=== PATIENT | female | born 1930 | race Caucasian/White ===

== ENCOUNTER 2017-02-16 16:30 | Inpatient (IN) | payer MEDICARE ==
[~2017-02-16] VITALS: Ht 154.9 cm; Wt 65.6 kg
[~2017-02-16 16:30] MED LIST: ALPR-475 PO; CHOL100015 PO; CYAN10005 PO; MULT-6 PO; NEBI5TAB2 PO
[2017-02-16] MEDS ORDERED: SODIUM CHLORIDE FLUSH 10ML SYR IVF ONE (17:30)
[2017-02-16 17:58] LABS: ASPARTATE AMINO TRANSFERASE 12 U/L (15-37); BLOOD UREA NITROGEN 19 mg/dL (7-18)
[2017-02-16] MEDS ORDERED: ACETAMINOPHEN 500 MG TABLET ONE (18:06)
[2017-02-16] MEDS ORDERED: METOCLOPRAMIDE 5 MG/ML, 2ML ONE (18:07)
[2017-02-16 18:15] LABS: HEMATOCRIT 26.4 % (34.6-47.8); HEMOGLOBIN 8.3 g/dL (11.7-16.4); WHITE BLOOD COUNT 15.3 x10^3/uL (3.4-10)
[2017-02-16 18:23] LABS: DIFF TOTAL CELLS COUNTED 100 CELL DIFF
[2017-02-16 18:26] LABS: ANISOCYTOSIS 2+; VERIFY COUNTS? YES
[2017-02-16 18:27] LABS: HYPOCHROMIA 2+; MICROCYTOSIS 2+; OVALOCYTES 1+; SCHISTOCYTES 1+
[2017-02-16 18:29] LABS: GIANT PLATELETS 1+; LARGE PLATELETS 2+
[2017-02-16] MEDS ORDERED: ACETAMINOPHEN 325 MG TABLET PO ONE (18:30)
[2017-02-16] MEDS ORDERED: METOCLOPRAMIDE 5 MG/ML, 2ML IVPush ONE (18:30)
[2017-02-16 19:18] LABS: TOTAL IRON BINDING CAPACITY 229 mcg/dL (250-450)
[2017-02-16] MEDS ORDERED: MAGNESIUM SULFATE PMX 2GM/50ML 50 ML IV ONE (20:00)
[2017-02-16] MEDS ORDERED: POLYETHYLENE GLYCOL 17 GM PACKET PO PRN (20:00)
[2017-02-16] MEDS ORDERED: ONDANSETRON 2MG/ML, 2ML IVPush PRN (20:00)
[2017-02-16] MEDS ORDERED: ACETAMINOPHEN 325 MG TABLET PO PRN (20:00)
[2017-02-16] MEDS ORDERED: BISACODYL 10 MG SUPP PR PRN (20:00)
[2017-02-16 20:30] VITALS: BP 104/57
[2017-02-16] MEDS ORDERED: ERGOCALCIFEROL 50,000 UNIT CAPSULE PO SCH (21:00)
[2017-02-16] MEDS: SODIUM CHLORIDE 0.9% 1,000 ML IV SCH (23:12)
[2017-02-17] VITALS (12 sets, daily range): BP systolic 93–127; BP diastolic 45–67
[2017-02-17 06:05] LABS: HEMATOCRIT 25.9 % (34.6-47.8); HEMOGLOBIN 8.5 g/dL (11.7-16.4); WHITE BLOOD COUNT 10.7 x10^3/uL (3.4-10)
[2017-02-17 06:15] LABS: ASPARTATE AMINO TRANSFERASE 12 U/L (15-37); BLOOD UREA NITROGEN 23 mg/dL (7-18)
[2017-02-17 08:48] LABS: RAPID INFLUENZA A Negative (Negative); RAPID INFLUENZA B Negative (Negative)
[2017-02-17] MEDS: SENNA/DOCUSATE TABLET PO SCH ×2 (09:00→09:24)
[2017-02-17] MEDS: NEBIVOLOL HCL 5 MG TABLET PO SCH (09:00)
[2017-02-17] MEDS: POTASSIUM CHLORIDE 20 MEQ TAB.ER.PRT PO SCH ×2 (09:24→16:28)
[2017-02-17] MEDS: LEVOFLOXACIN/PMX 750MG/150ML 150 ML IV SCH (09:24)
[2017-02-17] MEDS: CYANOCOBALAMIN 1,000 MCG TABLET PO SCH (09:24)
[2017-02-17] MEDS: MULTIVITAMIN 1 TABLET PO SCH (09:24)
[2017-02-17] MEDS: SODIUM CHLORIDE 0.9% 1,000 ML IV SCH (16:28)
[2017-02-18 00:38] VITALS: BP 118/65
[2017-02-18] MEDS: SODIUM CHLORIDE 0.9% 1,000 ML IV SCH ×2 (04:24→16:43)
[2017-02-18 05:07] LABS: HEMATOCRIT 27.7 % (34.6-47.8); HEMOGLOBIN 9.1 g/dL (11.7-16.4); WHITE BLOOD COUNT 6.8 x10^3/uL (3.4-10)
[2017-02-18 05:10] LABS: BLOOD UREA NITROGEN 18 mg/dL (7-18)
[2017-02-18 06:50] VITALS: BP 127/63
[2017-02-18] MEDS: SENNA/DOCUSATE TABLET PO SCH (09:00)
[2017-02-18] MEDS: NEBIVOLOL HCL 5 MG TABLET PO SCH (09:10)
[2017-02-18] MEDS: MULTIVITAMIN 1 TABLET PO SCH (09:10)
[2017-02-18] MEDS: POTASSIUM CHLORIDE 20 MEQ TAB.ER.PRT PO SCH ×2 (09:11→16:43)
[2017-02-18] MEDS: CYANOCOBALAMIN 1,000 MCG TABLET PO SCH (09:12)
[2017-02-18] MEDS: LEVOFLOXACIN/PMX 750MG/150ML 150 ML IV SCH (09:14)
[2017-02-18 15:25] VITALS: BP 136/62
[2017-02-18 18:36] VITALS: BP 149/67
[2017-02-19 02:14] VITALS: BP 128/65
[2017-02-19] MEDS: SODIUM CHLORIDE 0.9% 1,000 ML IV SCH (05:27)
[2017-02-19 05:37] LABS: ASPARTATE AMINO TRANSFERASE 12 U/L (15-37); BLOOD UREA NITROGEN 16 mg/dL (7-18)
[2017-02-19 06:15] LABS: HEMATOCRIT 27.7 % (34.6-47.8); HEMOGLOBIN 9.1 g/dL (11.7-16.4); WHITE BLOOD COUNT 5.4 x10^3/uL (3.4-10)
[2017-02-19 07:38] VITALS: BP 137/65
[2017-02-19] MEDS: SENNA/DOCUSATE TABLET PO SCH (09:00)
[2017-02-19] MEDS: MULTIVITAMIN 1 TABLET PO SCH (10:15)
[2017-02-19] MEDS: CYANOCOBALAMIN 1,000 MCG TABLET PO SCH (10:15)
[2017-02-19] MEDS: LEVOFLOXACIN 750 MG TABLET PO SCH (10:15)
[2017-02-19] MEDS: NEBIVOLOL HCL 5 MG TABLET PO SCH (10:15)
[2017-02-19] MEDS: POTASSIUM CHLORIDE 20 MEQ TAB.ER.PRT PO SCH ×2 (10:15→17:06)
[2017-02-19 12:02] VITALS: BP 150/70
[2017-02-19 19:30] VITALS: BP 131/74
[2017-02-20 01:53] VITALS: BP 136/74
[2017-02-20 05:46] LABS: HEMATOCRIT 29.8 % (34.6-47.8); HEMOGLOBIN 9.6 g/dL (11.7-16.4); WHITE BLOOD COUNT 6.2 x10^3/uL (3.4-10)
[2017-02-20 06:32] VITALS: BP 145/54
[2017-02-20] MEDS: LEVOFLOXACIN 750 MG TABLET PO SCH (08:20)
[2017-02-20] MEDS: NEBIVOLOL HCL 5 MG TABLET PO SCH (08:20)
[2017-02-20] MEDS: MULTIVITAMIN 1 TABLET PO SCH (08:20)
[2017-02-20] MEDS: CYANOCOBALAMIN 1,000 MCG TABLET PO SCH (08:20)
[2017-02-20] MEDS: SENNA/DOCUSATE TABLET PO SCH (08:20)
[2017-02-20] MEDS: POTASSIUM CHLORIDE 20 MEQ TAB.ER.PRT PO SCH (08:21)
[2017-02-20] MEDS ORDERED: LEVO750T26 PO (09:54)
[2017-02-23] MEDS ORDERED: ERGOCALCIFEROL 50,000 UNIT CAPSULE PO SCH (23:45)
== END 2017-02-20 11:10 | disposition home or self-care (01) | DRG 193 ==
LOC: ED 19:33 → 4NOR 19:35 → ED 21:20
PROVIDERS: ADMIT Hospitalist; ATTEND Hospitalist
PROC: 30233N1 Transfusion of Nonautologous Red Blood Cells into Peripheral Vein, Percutaneous Approach (ICD-10-PCS; principal; 2017-02-16)
DX: J18.9 Pneumonia, unspecified organism (principal); J96.91 Respiratory failure, unspecified with hypoxia; D56.1 Beta thalassemia; E86.0 Dehydration; E83.42 Hypomagnesemia; E83.51 Hypocalcemia; I10 Essential (primary) hypertension; D50.9 Iron deficiency anemia, unspecified; E53.8 Deficiency of other specified B group vitamins; E87.6 Hypokalemia; D72.829 Elevated white blood cell count, unspecified; M81.0 Age-related osteoporosis without current pathological fracture; Z66 Do not resuscitate; F41.9 Anxiety disorder, unspecified; Z83.3 Family history of diabetes mellitus; Z86.010 Personal history of colon polyps; Z88.1 Allergy status to other antibiotic agents; Z88.2 Allergy status to sulfonamides; Z88.8 Allergy status to other drugs, medicaments and biological substances; Z90.49 Acquired absence of other specified parts of digestive tract; Z93.2 Ileostomy status
CPT/HCPCS: 36415; 36430; 71010; 80048; 80053; 82040; 82248; 82728; 83540; 83550; 83605; 83615; 83735; 83880; 84100; 85025; 85045; 86850; 86860; 86870; 86880; 86900; 86902; 86922; 86923; 87040; 87070; 87205; 87400; 93005; 96374; J1956; J2765; J3475; J7030; P9016

== ENCOUNTER 2019-02-24 13:31 | Emergency (ER) | payer MEDICARE ==
[~2019-02-24] VITALS: Ht 157.5 cm; Wt 60.2 kg
[~2019-02-24 13:31] MED LIST changes: -ALPR-475 PO; +ALPR0.5T7 PO; +AMLO2.5T5 PO; +ATEN25TA PO; +CYAN-27 PO; -CYAN10005 PO; +FLUO20CA19 PO; +LEVO750T26 PO; +METO50TA82 PO; -NEBI5TAB2 PO; +NEBI5TAB3 PO; +VITA200C7 PO
--- NOTE | 2019-02-24 13:58 | NUR ---
PT TO ROOM 2 AFTER SHE WAS TOLD BY HER DR DR. TYLER TO COME TO ED FOR HGB 7.2. PT STATES SHE HAD HER BLOOD DRAWN ON TUESDAY. PT STATES SHE HAS BEEN FEELING LETHARGIC. PT STATES SHE HAS HAD 29 TRANSFUSIONS IN THE PAST. PT RESTING ON GURNEY. CURRIE John.
[2019-02-24 14:33] LABS: ANION GAP 6 mmol/L (5-15); CALCIUM 8.7 mg/dL (8.5-10.1); CHLORIDE 110 mmol/L (98-107); CREATININE 0.96 mg/dL (0.55-1.02)
[2019-02-24 14:40] LABS: BASOPHILS # (AUTO) 0.06 x10^3/uL (0-0.1); BASOPHILS % (AUTO) 1 % (0-1); EOSINOPHILS # (AUTO) 0.16 x10^3/uL (0-0.4); EOSINOPHILS % (AUTO) 3 % (1-7); LYMPHOCYTES # (AUTO) 1.19 x10^3/uL (1-3.4); LYMPHOCYTES % (AUTO) 20 % (22-44); MD MORPH REVIEW ONLY; MEAN CORPUSCULAR HEMOGLOBIN 23.8 pg (27.0-34.8); MEAN CORPUSCULAR HGB CONC 31.8 g/dL (32.4-35.8); MEAN CORPUSCULAR VOLUME 74.7 fL (80-100); MEAN PLATELET VOLUME 9.9 fL (7.4-10.4); MONOCYTES # (AUTO) 0.58 x10^3/uL (0.2-0.8); MONOCYTES % (AUTO) 10 % (2-9); NEUTROPHILS # (AUTO) 3.85 x10^3/uL (1.8-6.8); NEUTROPHILS % (AUTO) 66 % (42-75); PLATELET COUNT 168 x10^3/uL (130-400); RED BLOOD COUNT 3.38 x10^6/uL (3.82-5.3); RED CELL DISTRIBUTION WIDTH 17.1 % (9.6-15.2)
--- NOTE | 2019-02-24 14:49 | NUR ---
PT RESTING ON GURNEY. NADN. CHAPA.
[2019-02-24 15:12] LABS: ANISOCYTOSIS 1+; HYPOCHROMIA 1+; MICROCYTOSIS 1+
[2019-02-24 15:13] LABS: POLYCHROMASIA 1+
[2019-02-24 15:14] LABS: OVALOCYTES 1+; TEAR DROPS 1+
[2019-02-24 15:15] LABS: <PLATELET ESTIMATE> ADEQUATE; LARGE PLATELETS 1+
[2019-02-24 15:44] LABS: TROPONIN I < 0.015 ng/mL (0.000-0.045)
[2019-02-24 16:00] VITALS: BP 126/41
--- NOTE | 2019-02-24 16:00 | NUR ---
PT RESTING ON GURNEY. NADN. CHAPA.
== END 2019-02-24 16:43 | disposition home or self-care (01) ==
LOC: ED 15:47
DX: D56.1 Beta thalassemia (principal); R06.00 Dyspnea, unspecified; I10 Essential (primary) hypertension; Z90.49 Acquired absence of other specified parts of digestive tract
CPT/HCPCS: 36415; 71045; 80048; 83880; 84484; 85025; 86850; 86870; 86900; 93005; 99284